=== PATIENT | female | born 1930 | race Caucasian/White ===

== ENCOUNTER 2018-05-15 13:20 | Inpatient (IN) | payer MEDICARE, OTHER ==
[~2018-05-15] VITALS: Ht 152.4 cm; Wt 67.3 kg
--- NOTE | 2018-05-15 15:26 | NUR ---
PT CALLED FROM LOBBY TO ROOM 24. DAUGHTER/PT IN LOBBY RESTROOM, DENYING ASSISTANCE. PT/FAMILY AWARE OF BED ASSIGNMENT AND WILL BE ROOMED ONCE OUT OF BATHROOM
[2018-05-15] MEDS ORDERED: MORPHINE SULFATE 4 MG/ML, 1ML ONE ×2 (15:52→17:05)
[2018-05-15] MEDS ORDERED: OXYcodone/APAP 10/325MG TABLET PO ONE (16:00)
[2018-05-15] MEDS ORDERED: morphine SULFATE 10 MG/ML, 1ML IVPush ONE (16:00)
--- NOTE | 2018-05-15 16:00 | NUR ---
PT CO WORSENING R HIP/BACK/KNEE PAIN AND "MUSCLE SPAMS" X THIS MORNING. PT ADMITS RECENT MECHANICAL GLF "ALMOST TWO WEEKS AGO" AND WAS REGAINING ROM AND STRENGTH UNTIL THIS AM. +CMS. IV ESTABLISHED. BP/SPO2 MONITOR IN PLACE. PT MEDICATED PER EMAR FOR PAIN. 6MG MORPHINE ORDERED, PT REQUESTING TO START WITH 4MG. PT PLACED ON 2L BY NC FOR SUPPORT. FAMILY AT BEDSIDE.
[2018-05-15] MEDS ORDERED: [UNRECOGNIZED DRUG - OTHER] (18:12)
[2018-05-15] MEDS ORDERED: OMEP10CA4 PO (18:12)
[2018-05-15] MEDS ORDERED: LOVA20TA2 PO (18:12)
[2018-05-15] MEDS ORDERED: BRIN8DRO RIGHTEYE (18:12)
[2018-05-15] MEDS ORDERED: ATEN50TA41 PO (18:12)
[2018-05-15] MEDS ORDERED: POTA99TA24 PO (18:12)
[2018-05-15] MEDS ORDERED: ATOR-2 PO (18:12)
[2018-05-15] MEDS ORDERED: LEVO25TA4 PO (18:12)
[2018-05-15] MEDS ORDERED: FURO20TA3 PO (18:12)
[2018-05-15] MEDS ORDERED: AMLO10TA8 PO (18:12)
--- NOTE | 2018-05-15 18:18 | NUR ---
PT LAYING IN GURNEY, AWAKE/ALERT. PT REPORTS IMPROVEMENT IN PAIN WITH MEDICATIONS AND APPEARS SIGNIFICANTLY MORE COMFORTABLE. FAMILY REMAINS AT BEDSIDE. AWAITING DISPO
[2018-05-15] MEDS ORDERED: KETOROLAC 30 MG/1 ML IVPush ONE (19:00)
--- NOTE | 2018-05-15 19:14 | NUR ---
Report from DENNIS Coates.
[2018-05-15] MEDS ORDERED: KETOROLAC 30 MG/1 ML ONE (19:29)
--- NOTE | 2018-05-15 19:40 | NUR ---
Toradol admin. Placed on bed galvan to void. Repositioned for comfort.
[2018-05-15] MEDS ORDERED: DOCUSATE 100 MG CAPSULE PO PRN (20:00)
[2018-05-15] MEDS ORDERED: POLYETHYLENE GLYCOL 17 GM PACKET PO PRN (20:00)
[2018-05-15] MEDS ORDERED: morphine SULFATE 10 MG/ML, 1ML IVPush PRN (20:00)
--- NOTE | 2018-05-15 20:05 | NUR ---
Report called to DENNIS Ruff.
[2018-05-15] MEDS ORDERED: LATA2.5D3 RIGHTEYE (20:44)
[2018-05-15] MEDS ORDERED: TIMO5DRO5 RIGHTEYE (20:44)
[2018-05-15 20:45] VITALS: BP 114/70
[2018-05-15] MEDS ORDERED: ENOXAPARIN 40 MG/0.4 ML SQ SCH (21:00)
[2018-05-15] MEDS ORDERED: LOVASTATIN 20 MG TABLET PO SCH (21:00)
[2018-05-15] MEDS ORDERED: ATORVASTATIN 80 MG TABLET PO SCH (21:00)
[2018-05-15] MEDS: SODIUM CHLORIDE FLUSH 10ML SYR IVF SCH (21:50)
[2018-05-15] MEDS: FAMOTIDINE 20 MG TABLET PO SCH (21:50)
[2018-05-16 03:26] VITALS: BP 116/55
[2018-05-16] MEDS: BACLOFEN 10 MG TABLET PO PRN ×3 (05:05→23:25)
[2018-05-16 07:34] VITALS: BP 130/60
[2018-05-16] MEDS ORDERED: AMLODIPINE 10 MG TAB PO SCH (09:00)
[2018-05-16 09:50] LABS: CREATININE 1.26 mg/dL (0.55-1.02)
[2018-05-16] MEDS: SENNA/DOCUSATE TABLET PO SCH (10:45)
[2018-05-16] MEDS: SODIUM CHLORIDE FLUSH 10ML SYR IVF SCH ×2 (10:46→21:14)
[2018-05-16] MEDS: FAMOTIDINE 20 MG TABLET PO SCH ×2 (10:46→21:13)
[2018-05-16] MEDS: ATENOLOL 50 MG TABLET PO SCH (10:46)
[2018-05-16] MEDS: LEVOTHYROXINE 75 MCG TABLET PO SCH (10:47)
[2018-05-16] MEDS: ACETAMINOPHEN 325 MG TABLET PO PRN (12:14)
[2018-05-16 14:37] VITALS: BP 163/72
[2018-05-16] MEDS ORDERED: morphine SULFATE 10 MG/ML, 1ML IVPush PRN (17:30)
[2018-05-16] MEDS ORDERED: hydrALAzine 20 MG/ML, 1ML IV PRN (18:00)
[2018-05-16 20:15] VITALS: BP 107/53
[2018-05-16] MEDS: BRINZOLAMIDE RIGHTEYE SCH (21:00)
[2018-05-16] MEDS: LATANOPROST OPHTH 0.005%, 2.5ML RIGHTEYE SCH (21:00)
[2018-05-16] MEDS: BRIMONIDINE RIGHTEYE SCH (21:00)
[2018-05-16] MEDS: LOVASTATIN 20 MG TABLET PO SCH (21:00)
[2018-05-16] MEDS: METHOCARBAMOL 1,000 MG in DEXTROSE 5% 100 ML IV SCH (21:13)
[2018-05-16] MEDS: AMLODIPINE 10 MG TAB PO SCH (21:13)
[2018-05-16] MEDS: morphine SULFATE 10 MG/ML, 1ML IVPush PRN (22:51)
[2018-05-16] MEDS: ENOXAPARIN 30 MG/0.3 ML SQ SCH (22:51)
[2018-05-17 02:00] VITALS: BP 122/62
[2018-05-17] MEDS: METHOCARBAMOL 1,000 MG in DEXTROSE 5% 100 ML IV SCH ×4 (02:50→23:00)
[2018-05-17 06:32] LABS: ALBUMIN 3.1 g/dL (3.4-5.0); ANION GAP 11 mmol/L (5-15); CALCIUM 7.5 mg/dL (8.5-10.1); CHLORIDE 94 mmol/L (98-107)
[2018-05-17 06:36] LABS: ALANINE AMINOTRANSFERASE 32 U/L (12-78); ALKALINE PHOSPHATASE 98 U/L (45-117); BILIRUBIN,TOTAL 0.8 mg/dL (0.2-1.0); CREATININE 0.97 mg/dL (0.55-1.02); TOTAL PROTEIN 6.7 g/dL (6.4-8.2)
[2018-05-17] MEDS: morphine SULFATE 10 MG/ML, 1ML IVPush PRN ×2 (06:37→16:04)
[2018-05-17 06:56] VITALS: BP 136/69
[2018-05-17 08:40] LABS: BASOPHILS # (AUTO) 0.07 x10^3/uL (0-0.1); BASOPHILS % (AUTO) 1 % (0-1); EOSINOPHILS # (AUTO) 0.09 x10^3/uL (0-0.4); EOSINOPHILS % (AUTO) 1 % (1-7); LYMPHOCYTES # (AUTO) 1.21 x10^3/uL (1-3.4); LYMPHOCYTES % (AUTO) 15 % (22-44); MD NO; MEAN CORPUSCULAR HEMOGLOBIN 28.7 pg (27.0-34.8); MEAN CORPUSCULAR VOLUME 86.8 fL (80-100); MEAN PLATELET VOLUME 8.7 fL (7.4-10.4); MONOCYTES # (AUTO) 0.42 x10^3/uL (0.2-0.8); MONOCYTES % (AUTO) 5 % (2-9); NEUTROPHILS # (AUTO) 6.56 x10^3/uL (1.8-6.8); NEUTROPHILS % (AUTO) 79 % (42-75); PLATELET COUNT 225 x10^3/uL (130-400); RED BLOOD COUNT 3.85 x10^6/uL (3.82-5.3); RED CELL DISTRIBUTION WIDTH 13.4 % (9.6-15.2)
[2018-05-17] MEDS: SODIUM CHLORIDE FLUSH 10ML SYR IVF SCH ×2 (10:48→20:44)
[2018-05-17] MEDS: FAMOTIDINE 20 MG TABLET PO SCH ×2 (10:48→20:43)
[2018-05-17] MEDS: LEVOTHYROXINE 75 MCG TABLET PO SCH (10:48)
[2018-05-17] MEDS: SENNA/DOCUSATE TABLET PO SCH (10:48)
[2018-05-17] MEDS: ATENOLOL 50 MG TABLET PO SCH (10:53)
[2018-05-17] MEDS: TIMOLOL OPHTH 0.5%, 5ML RIGHTEYE SCH (10:55)
[2018-05-17] MEDS: ONDANSETRON 2MG/ML, 2ML IVPush PRN (11:22)
[2018-05-17] MEDS: BRINZOLAMIDE RIGHTEYE SCH ×3 (11:23→20:46)
[2018-05-17] MEDS: BRIMONIDINE RIGHTEYE SCH ×3 (11:23→20:46)
[2018-05-17 13:22] VITALS: BP 121/63
[2018-05-17] MEDS: HYDROcodone/APAP 5/325 TABLET PO PRN (14:29)
[2018-05-17] MEDS ORDERED: POTASSIUM CHLORIDE 20 MEQ TAB.ER.PRT PO ONE (15:00)
[2018-05-17] MEDS ORDERED: FUROSEMIDE 40 MG/4 ML IV ONE (15:00)
[2018-05-17] MEDS ORDERED: GADOBUTROL 7.5 MMOL/7.5 ML PFS ONE (15:03)
[2018-05-17] MEDS: SODIUM CHLORIDE 0.9% 1,000 ML IV SCH ×2 (16:21→23:37)
[2018-05-17 19:46] VITALS: BP 108/68
[2018-05-17] MEDS: LOVASTATIN 20 MG TABLET PO SCH (20:44)
[2018-05-17] MEDS: ENOXAPARIN 30 MG/0.3 ML SQ SCH (20:44)
[2018-05-17] MEDS: AMLODIPINE 10 MG TAB PO SCH (20:44)
[2018-05-17] MEDS: LATANOPROST OPHTH 0.005%, 2.5ML RIGHTEYE SCH (20:45)
[2018-05-18 02:09] VITALS: BP 128/62
[2018-05-18] MEDS: METHOCARBAMOL 1,000 MG in DEXTROSE 5% 100 ML IV SCH (03:41)
[2018-05-18 05:38] LABS: ANION GAP 10 mmol/L (5-15); CHLORIDE 97 mmol/L (98-107); CREATININE 0.97 mg/dL (0.55-1.02)
[2018-05-18] MEDS: FAMOTIDINE 20 MG TABLET PO SCH ×2 (07:34→21:42)
[2018-05-18] MEDS: SENNA/DOCUSATE TABLET PO SCH (07:34)
[2018-05-18] MEDS: SODIUM CHLORIDE 0.9% 1,000 ML IV SCH (07:34)
[2018-05-18] MEDS: BACLOFEN 10 MG TABLET PO PRN ×2 (07:34→15:55)
[2018-05-18] MEDS: ATENOLOL 50 MG TABLET PO SCH (07:35)
[2018-05-18] MEDS: LEVOTHYROXINE 75 MCG TABLET PO SCH (07:35)
[2018-05-18] MEDS: BRINZOLAMIDE RIGHTEYE SCH ×3 (07:37→21:00)
[2018-05-18] MEDS: TIMOLOL OPHTH 0.5%, 5ML RIGHTEYE SCH (07:37)
[2018-05-18] MEDS: BRIMONIDINE RIGHTEYE SCH ×3 (07:37→21:00)
[2018-05-18 08:00] VITALS: BP 156/72
[2018-05-18] MEDS: SODIUM CHLORIDE FLUSH 10ML SYR IVF SCH ×2 (09:00→21:00)
[2018-05-18] MEDS: HYDROcodone/APAP 5/325 TABLET PO PRN (10:19)
[2018-05-18 10:30] VITALS: BP 151/76
[2018-05-18] MEDS ORDERED: SODIUM CHLORIDE 0.9% 1,000 ML IV SCH (11:00)
[2018-05-18] MEDS ORDERED: LACTULOSE 20 GM/30 ML UDC PR ONE (11:00)
[2018-05-18] MEDS ORDERED: POTASSIUM CHLORIDE 20 MEQ TAB.ER.PRT PO ONE (11:30)
[2018-05-18] MEDS ORDERED: FUROSEMIDE 40 MG/4 ML IV ONE (11:30)
[2018-05-18] MEDS ORDERED: ALBUTEROL SULFATE 2.5 MG/3 ML NPPB PRN (12:00)
[2018-05-18] MEDS ORDERED: OMNIPAQUE 350 MG/ML, 100ML BOTTLE ONE (13:20)
[2018-05-18 14:02] LABS: CHLORIDE 93 mmol/L (98-107)
[2018-05-18 14:07] VITALS: BP 159/77
[2018-05-18] MEDS ORDERED: METH500T97 PO (14:08)
[2018-05-18] MEDS ORDERED: TRAM50TA2 PO (14:08)
[2018-05-18] MEDS ORDERED: LISI-167 PO (14:08)
[2018-05-18] MEDS ORDERED: HYDR-3240 PO (14:08)
[2018-05-18] MEDS ORDERED: FURO40TA6 PO (14:08)
[2018-05-18] MEDS ORDERED: POLY17PO5 PO (14:08)
[2018-05-18 14:09] LABS: ANION GAP 9 mmol/L (5-15); CALCIUM 8.2 mg/dL (8.5-10.1); CREATININE 0.96 mg/dL (0.55-1.02)
[2018-05-18] MEDS: morphine SULFATE 10 MG/ML, 1ML IVPush PRN (15:54)
[2018-05-18] MEDS: FUROSEMIDE 40 MG/4 ML IV SCH (15:55)
[2018-05-18 19:57] VITALS: BP 126/64
[2018-05-18] MEDS: LOVASTATIN 20 MG TABLET PO SCH (21:00)
[2018-05-18] MEDS: LATANOPROST OPHTH 0.005%, 2.5ML RIGHTEYE SCH (21:00)
[2018-05-18] MEDS: AMLODIPINE 10 MG TAB PO SCH (21:42)
[2018-05-18] MEDS: ENOXAPARIN 30 MG/0.3 ML SQ SCH (21:42)
[2018-05-19 01:12] VITALS: BP 140/80
[2018-05-19 05:33] LABS: CHLORIDE 93 mmol/L (98-107)
[2018-05-19 05:43] LABS: ANION GAP 9 mmol/L (5-15); CALCIUM 8.8 mg/dL (8.5-10.1); CREATININE 1.12 mg/dL (0.55-1.02)
[2018-05-19 07:36] VITALS: BP 162/71
[2018-05-19] MEDS: LEVOTHYROXINE 75 MCG TABLET PO SCH (08:49)
[2018-05-19] MEDS: POTASSIUM CHLORIDE 20 MEQ TAB.ER.PRT PO SCH ×2 (08:49→17:47)
[2018-05-19] MEDS: SODIUM CHLORIDE FLUSH 10ML SYR IVF SCH ×2 (08:50→19:32)
[2018-05-19] MEDS: ATENOLOL 50 MG TABLET PO SCH (08:50)
[2018-05-19] MEDS: SENNA/DOCUSATE TABLET PO SCH ×2 (08:50→09:00)
[2018-05-19] MEDS: FAMOTIDINE 20 MG TABLET PO SCH ×2 (08:50→19:31)
[2018-05-19] MEDS: BRINZOLAMIDE RIGHTEYE SCH ×3 (08:51→19:32)
[2018-05-19] MEDS: TIMOLOL OPHTH 0.5%, 5ML RIGHTEYE SCH (08:51)
[2018-05-19] MEDS: FUROSEMIDE 40 MG/4 ML IV SCH ×2 (08:51→17:16)
[2018-05-19] MEDS: BRIMONIDINE RIGHTEYE SCH ×3 (08:51→19:32)
[2018-05-19] MEDS: BACLOFEN 10 MG TABLET PO PRN ×3 (09:19→19:29)
[2018-05-19] MEDS ORDERED: SODIUM CHLORIDE 1 GM TABLET PO SCH (12:00)
[2018-05-19] MEDS ORDERED: SODIUM CHLORIDE 1 GM TABLET ONE (12:51)
[2018-05-19] MEDS: SODIUM CHLORIDE 1 GM TABLET PO SCH ×2 (12:54→19:32)
[2018-05-19 14:00] VITALS: BP 120/69
[2018-05-19] MEDS: ACETAMINOPHEN 325 MG TABLET PO PRN (17:16)
[2018-05-19] MEDS: HYDROcodone/APAP 5/325 TABLET PO PRN (19:29)
[2018-05-19] MEDS: LOVASTATIN 20 MG TABLET PO SCH (19:31)
[2018-05-19] MEDS: AMLODIPINE 10 MG TAB PO SCH (19:31)
[2018-05-19] MEDS: LATANOPROST OPHTH 0.005%, 2.5ML RIGHTEYE SCH (19:32)
[2018-05-19] MEDS: ENOXAPARIN 30 MG/0.3 ML SQ SCH (19:32)
[2018-05-19 19:56] VITALS: BP 104/60
[2018-05-20 01:12] VITALS: BP 159/78
[2018-05-20] MEDS: BACLOFEN 10 MG TABLET PO PRN (04:42)
[2018-05-20] MEDS: HYDROcodone/APAP 5/325 TABLET PO PRN (04:42)
[2018-05-20 05:42] LABS: CHLORIDE 93 mmol/L (98-107)
[2018-05-20 06:13] LABS: ANION GAP 10 mmol/L (5-15); CALCIUM 8.5 mg/dL (8.5-10.1); CREATININE 1.03 mg/dL (0.55-1.02)
[2018-05-20 07:48] VITALS: BP 126/67
[2018-05-20] MEDS: SENNA/DOCUSATE TABLET PO SCH (09:00)
[2018-05-20] MEDS: TIMOLOL OPHTH 0.5%, 5ML RIGHTEYE SCH (09:00)
[2018-05-20] MEDS: BRIMONIDINE RIGHTEYE SCH ×3 (09:00→20:44)
[2018-05-20] MEDS: SODIUM CHLORIDE FLUSH 10ML SYR IVF SCH ×2 (09:00→20:43)
[2018-05-20] MEDS: FAMOTIDINE 20 MG TABLET PO SCH ×3 (09:00→20:42)
[2018-05-20] MEDS: BRINZOLAMIDE RIGHTEYE SCH ×3 (09:00→20:44)
[2018-05-20] MEDS: POTASSIUM CHLORIDE 20 MEQ TAB.ER.PRT PO SCH (09:00)
[2018-05-20] MEDS: ATENOLOL 50 MG TABLET PO SCH ×2 (09:00→10:42)
[2018-05-20] MEDS: FUROSEMIDE 40 MG/4 ML IV SCH ×2 (10:41→16:40)
[2018-05-20] MEDS: LEVOTHYROXINE 75 MCG TABLET PO SCH (10:41)
[2018-05-20] MEDS: SODIUM CHLORIDE 1 GM TABLET PO SCH ×3 (10:41→20:43)
[2018-05-20 14:00] VITALS: BP 138/74
[2018-05-20] MEDS: ONDANSETRON 2MG/ML, 2ML IVPush PRN (16:40)
[2018-05-20] MEDS: AMLODIPINE 10 MG TAB PO SCH (20:42)
[2018-05-20] MEDS: LOVASTATIN 20 MG TABLET PO SCH (20:42)
[2018-05-20] MEDS: ENOXAPARIN 30 MG/0.3 ML SQ SCH (20:43)
[2018-05-20 20:44] VITALS: BP 139/73
[2018-05-20] MEDS: LATANOPROST OPHTH 0.005%, 2.5ML RIGHTEYE SCH (20:44)
[2018-05-20 21:10] VITALS: BP 132/65
[2018-05-21] MEDS: BACLOFEN 10 MG TABLET PO PRN ×3 (02:32→22:30)
[2018-05-21] MEDS: ONDANSETRON 2MG/ML, 2ML IVPush PRN ×2 (02:32→08:56)
[2018-05-21 02:43] VITALS: BP 139/65
[2018-05-21] MEDS ORDERED: ONDANSETRON ODT 4 MG ONE (02:59)
[2018-05-21 07:16] VITALS: BP 137/76
[2018-05-21] MEDS: FUROSEMIDE 40 MG/4 ML IV SCH ×2 (08:55→17:28)
[2018-05-21] MEDS: ATENOLOL 50 MG TABLET PO SCH (08:56)
[2018-05-21] MEDS: SODIUM CHLORIDE 1 GM TABLET PO SCH ×3 (08:56→20:46)
[2018-05-21] MEDS: FAMOTIDINE 20 MG TABLET PO SCH ×2 (08:56→20:47)
[2018-05-21] MEDS: BRINZOLAMIDE RIGHTEYE SCH ×3 (08:57→20:47)
[2018-05-21] MEDS: TIMOLOL OPHTH 0.5%, 5ML RIGHTEYE SCH (08:57)
[2018-05-21] MEDS: BRIMONIDINE RIGHTEYE SCH ×3 (08:57→20:47)
[2018-05-21] MEDS: SENNA/DOCUSATE TABLET PO SCH (09:00)
[2018-05-21] MEDS: SODIUM CHLORIDE FLUSH 10ML SYR IVF SCH ×2 (09:00→20:46)
[2018-05-21 10:15] LABS: CALCIUM 8.6 mg/dL (8.5-10.1); CREATININE 0.96 mg/dL (0.55-1.02)
[2018-05-21 10:24] LABS: ANION GAP 9 mmol/L (5-15); CHLORIDE 90 mmol/L (98-107)
[2018-05-21] MEDS: LEVOTHYROXINE 75 MCG TABLET PO SCH (11:54)
[2018-05-21 13:39] LABS: ANION GAP 9 mmol/L (5-15); CALCIUM 8.2 mg/dL (8.5-10.1); CHLORIDE 89 mmol/L (98-107); CREATININE 1.03 mg/dL (0.55-1.02)
[2018-05-21 14:43] VITALS: BP 132/72
[2018-05-21 19:13] VITALS: BP 127/66
[2018-05-21] MEDS: LATANOPROST OPHTH 0.005%, 2.5ML RIGHTEYE SCH (20:47)
[2018-05-21] MEDS: LOVASTATIN 20 MG TABLET PO SCH (20:47)
[2018-05-21] MEDS: AMLODIPINE 10 MG TAB PO SCH (20:47)
[2018-05-21] MEDS: ENOXAPARIN 30 MG/0.3 ML SQ SCH (22:29)
[2018-05-22 01:48] VITALS: BP 132/68
[2018-05-22 06:21] LABS: ANION GAP 10 mmol/L (5-15); CALCIUM 8.3 mg/dL (8.5-10.1); CHLORIDE 92 mmol/L (98-107)
[2018-05-22 06:39] VITALS: BP 129/69
[2018-05-22 06:48] LABS: CREATININE 0.99 mg/dL (0.55-1.02)
[2018-05-22] MEDS: ONDANSETRON 2MG/ML, 2ML IVPush PRN ×2 (08:45→17:48)
[2018-05-22] MEDS: SODIUM CHLORIDE FLUSH 10ML SYR IVF SCH ×2 (09:00→21:25)
[2018-05-22] MEDS: BRINZOLAMIDE RIGHTEYE SCH ×3 (09:00→21:00)
[2018-05-22] MEDS: TIMOLOL OPHTH 0.5%, 5ML RIGHTEYE SCH (09:00)
[2018-05-22] MEDS: BRIMONIDINE RIGHTEYE SCH ×3 (09:00→21:00)
[2018-05-22] MEDS: SENNA/DOCUSATE TABLET PO SCH (09:00)
[2018-05-22] MEDS: FUROSEMIDE 40 MG/4 ML IV SCH ×2 (10:10→17:49)
[2018-05-22] MEDS: POTASSIUM CHLORIDE 20 MEQ TAB.ER.PRT PO SCH (10:10)
[2018-05-22] MEDS: SODIUM CHLORIDE 1 GM TABLET PO SCH ×3 (10:11→21:26)
[2018-05-22] MEDS: ATENOLOL 50 MG TABLET PO SCH (10:11)
[2018-05-22] MEDS: FAMOTIDINE 20 MG TABLET PO SCH ×2 (10:11→21:25)
[2018-05-22] MEDS: BACLOFEN 10 MG TABLET PO PRN ×2 (10:11→21:39)
[2018-05-22] MEDS ORDERED: POTA20PA25 PO (10:31)
[2018-05-22] MEDS: LEVOTHYROXINE 75 MCG TABLET PO SCH (11:10)
[2018-05-22 13:25] VITALS: BP 112/69
[2018-05-22 18:40] VITALS: BP 116/62
[2018-05-22] MEDS: LATANOPROST OPHTH 0.005%, 2.5ML RIGHTEYE SCH (21:00)
[2018-05-22] MEDS: AMLODIPINE 10 MG TAB PO SCH (21:26)
[2018-05-22] MEDS: LOVASTATIN 20 MG TABLET PO SCH (21:27)
[2018-05-22] MEDS: ENOXAPARIN 30 MG/0.3 ML SQ SCH (21:39)
[2018-05-23 00:52] VITALS: BP 102/61
[2018-05-23 06:39] VITALS: BP 114/59
[2018-05-23] MEDS: BRIMONIDINE RIGHTEYE SCH ×3 (09:00→20:55)
[2018-05-23] MEDS: SODIUM CHLORIDE FLUSH 10ML SYR IVF SCH ×2 (09:00→20:56)
[2018-05-23] MEDS: TIMOLOL OPHTH 0.5%, 5ML RIGHTEYE SCH (09:00)
[2018-05-23] MEDS: BRINZOLAMIDE RIGHTEYE SCH ×3 (09:00→20:55)
[2018-05-23] MEDS: SENNA/DOCUSATE TABLET PO SCH (09:00)
[2018-05-23] MEDS: SODIUM CHLORIDE 1 GM TABLET PO SCH ×3 (09:04→20:53)
[2018-05-23] MEDS: FAMOTIDINE 20 MG TABLET PO SCH ×2 (09:04→20:54)
[2018-05-23] MEDS: FUROSEMIDE 40 MG/4 ML IV SCH (09:04)
[2018-05-23] MEDS: POTASSIUM CHLORIDE 20 MEQ TAB.ER.PRT PO SCH (09:05)
[2018-05-23] MEDS: LEVOTHYROXINE 75 MCG TABLET PO SCH (09:05)
[2018-05-23] MEDS: BACLOFEN 10 MG TABLET PO PRN ×2 (09:05→20:59)
[2018-05-23] MEDS: ATENOLOL 50 MG TABLET PO SCH (09:06)
[2018-05-23 12:10] VITALS: BP 121/69
[2018-05-23] MEDS ORDERED: POTASSIUM CHLORIDE 20 MEQ TAB.ER.PRT PO ONE (15:30)
[2018-05-23] MEDS: FUROSEMIDE 40 MG TABLET PO SCH (17:09)
[2018-05-23 19:12] VITALS: BP 121/68
[2018-05-23] MEDS: AMLODIPINE 10 MG TAB PO SCH (20:53)
[2018-05-23] MEDS: LOVASTATIN 20 MG TABLET PO SCH (20:54)
[2018-05-23] MEDS: LATANOPROST OPHTH 0.005%, 2.5ML RIGHTEYE SCH (20:55)
[2018-05-23] MEDS: ENOXAPARIN 30 MG/0.3 ML SQ SCH (21:37)
[2018-05-24 01:55] VITALS: BP 112/64
[2018-05-24 06:30] VITALS: BP 115/63
[2018-05-24] MEDS: SODIUM CHLORIDE 1 GM TABLET PO SCH ×3 (08:55→20:29)
[2018-05-24] MEDS: POTASSIUM CHLORIDE 20 MEQ TAB.ER.PRT PO SCH (08:55)
[2018-05-24] MEDS: LEVOTHYROXINE 75 MCG TABLET PO SCH (08:55)
[2018-05-24] MEDS: FUROSEMIDE 40 MG TABLET PO SCH ×2 (08:56→16:47)
[2018-05-24] MEDS: FAMOTIDINE 20 MG TABLET PO SCH ×2 (08:56→20:28)
[2018-05-24] MEDS: ATENOLOL 50 MG TABLET PO SCH (08:56)
[2018-05-24] MEDS: SODIUM CHLORIDE FLUSH 10ML SYR IVF SCH ×2 (08:57→20:36)
[2018-05-24] MEDS: SENNA/DOCUSATE TABLET PO SCH (08:57)
[2018-05-24] MEDS: TIMOLOL OPHTH 0.5%, 5ML RIGHTEYE SCH (08:58)
[2018-05-24] MEDS: BRINZOLAMIDE RIGHTEYE SCH ×3 (08:58→20:38)
[2018-05-24] MEDS: BRIMONIDINE RIGHTEYE SCH ×3 (08:58→20:38)
[2018-05-24 12:45] VITALS: BP 137/71
[2018-05-24] MEDS: BACLOFEN 10 MG TABLET PO PRN (15:27)
[2018-05-24 19:55] VITALS: BP 126/69
[2018-05-24] MEDS: LOVASTATIN 20 MG TABLET PO SCH (20:28)
[2018-05-24] MEDS: AMLODIPINE 10 MG TAB PO SCH (20:28)
[2018-05-24] MEDS: ENOXAPARIN 30 MG/0.3 ML SQ SCH (20:38)
[2018-05-24] MEDS: LATANOPROST OPHTH 0.005%, 2.5ML RIGHTEYE SCH (20:38)
[2018-05-25 01:22] VITALS: BP 106/58
[2018-05-25 06:47] VITALS: BP 116/66
[2018-05-25] MEDS: BRINZOLAMIDE RIGHTEYE SCH ×3 (09:00→20:03)
[2018-05-25] MEDS: TIMOLOL OPHTH 0.5%, 5ML RIGHTEYE SCH (09:00)
[2018-05-25] MEDS: SODIUM CHLORIDE FLUSH 10ML SYR IVF SCH ×2 (09:00→20:03)
[2018-05-25] MEDS: BRIMONIDINE RIGHTEYE SCH ×3 (09:00→20:03)
[2018-05-25] MEDS: SENNA/DOCUSATE TABLET PO SCH (09:00)
[2018-05-25] MEDS: FAMOTIDINE 20 MG TABLET PO SCH ×2 (09:04→20:02)
[2018-05-25] MEDS: SODIUM CHLORIDE 1 GM TABLET PO SCH ×3 (09:04→20:02)
[2018-05-25] MEDS: POTASSIUM CHLORIDE 20 MEQ TAB.ER.PRT PO SCH (09:04)
[2018-05-25] MEDS: FUROSEMIDE 40 MG TABLET PO SCH ×3 (09:05→16:54)
[2018-05-25] MEDS: LEVOTHYROXINE 75 MCG TABLET PO SCH ×2 (09:05→09:26)
[2018-05-25] MEDS: ATENOLOL 50 MG TABLET PO SCH ×2 (09:05→09:26)
[2018-05-25] MEDS: BACLOFEN 10 MG TABLET PO PRN (11:23)
[2018-05-25 13:28] VITALS: BP 121/78
[2018-05-25] MEDS ORDERED: TIMOLOL OPHTH 0.5%, 5ML RIGHTEYE SCH (16:51)
[2018-05-25] MEDS: ENOXAPARIN 30 MG/0.3 ML SQ SCH (20:01)
[2018-05-25] MEDS: LOVASTATIN 20 MG TABLET PO SCH (20:02)
[2018-05-25] MEDS: AMLODIPINE 10 MG TAB PO SCH (20:02)
[2018-05-25] MEDS: LATANOPROST OPHTH 0.005%, 2.5ML RIGHTEYE SCH (20:03)
[2018-05-25 20:39] VITALS: BP 102/60
[2018-05-26 03:14] VITALS: BP 114/60
[2018-05-26 07:11] VITALS: BP 124/62
[2018-05-26] MEDS: SODIUM CHLORIDE FLUSH 10ML SYR IVF SCH (09:00)
[2018-05-26] MEDS: BRINZOLAMIDE RIGHTEYE SCH (09:00)
[2018-05-26] MEDS: SENNA/DOCUSATE TABLET PO SCH (09:00)
[2018-05-26] MEDS: BRIMONIDINE RIGHTEYE SCH (09:00)
[2018-05-26] MEDS: LEVOTHYROXINE 75 MCG TABLET PO SCH (09:58)
[2018-05-26] MEDS: FAMOTIDINE 20 MG TABLET PO SCH (09:58)
[2018-05-26] MEDS: POTASSIUM CHLORIDE 20 MEQ TAB.ER.PRT PO SCH (09:59)
[2018-05-26] MEDS: SODIUM CHLORIDE 1 GM TABLET PO SCH (09:59)
[2018-05-26] MEDS: BACLOFEN 10 MG TABLET PO PRN (10:00)
[2018-05-26] MEDS: ATENOLOL 50 MG TABLET PO SCH (10:01)
[2018-05-26] MEDS: FUROSEMIDE 40 MG TABLET PO SCH (10:02)
== END 2018-05-26 13:00 | DRG 291 ==
LOC: ED 15:42 → EDIP 18:41 → 3NE 20:24
PROVIDERS: ADMIT Family Medicine; ATTEND Internal Medicine
DX: I11.0 Hypertensive heart disease with heart failure (principal); J96.01 Acute respiratory failure with hypoxia; N17.0 Acute kidney failure with tubular necrosis; E87.1 Hypo-osmolality and hyponatremia; G93.40 Encephalopathy, unspecified; M48.54XA Collapsed vertebra, not elsewhere classified, thoracic region, initial encounter for fracture; M54.9 Dorsalgia, unspecified; I50.33 Acute on chronic diastolic (congestive) heart failure; M16.11 Unilateral primary osteoarthritis, right hip; S73.101A Unspecified sprain of right hip, initial encounter; S76.211A Strain of adductor muscle, fascia and tendon of right thigh, initial encounter; G89.29 Other chronic pain; E03.9 Hypothyroidism, unspecified; E78.5 Hyperlipidemia, unspecified; H54.62 Unqualified visual loss, left eye, normal vision right eye; Z66 Do not resuscitate; I35.8 Other nonrheumatic aortic valve disorders; M11.269 Other chondrocalcinosis, unspecified knee; M17.11 Unilateral primary osteoarthritis, right knee; M41.9 Scoliosis, unspecified; W01.0XXA Fall on same level from slipping, tripping and stumbling without subsequent striking against object, initial encounter; Y93.89 Activity, other specified; Y92.038 Other place in apartment as the place of occurrence of the external cause; Y99.8 Other external cause status; Z82.49 Family history of ischemic heart disease and other diseases of the circulatory system
CPT/HCPCS: 36415; 71045; 71275; 72158; 72192; 80048; 80053; 82565; 83735; 84100; 85025; 93306; 94640; 96374; 96375; 99285; A9585; G0378; J1650; J1885; J1940; J2405; J7613; Q9967; J2270; J2800; J7030

== ENCOUNTER 2020-01-16 11:44 | Emergency (ER) | payer MEDICARE, OTHER ==
[~2020-01-16] VITALS: Ht 152.4 cm; Wt 62.0 kg
[~2020-01-16 11:44] MED LIST: AMLO10TA8 PO; ATEN50TA41 PO; ATOR-2 PO; BRIN8DRO RIGHTEYE; FURO20TA3 PO; FURO40TA6 PO; HYDR-3240 PO; LATA2.5D3 RIGHTEYE; LEVO25TA4 PO; LISI-167 PO; LOVA20TA2 PO; METH500T97 PO; OMEP10CA5 PO; POLY17PO5 PO; POTA20PA25 PO; POTA99TA24 PO; TIMO5DRO5 RIGHTEYE; TRAM50TA2 PO; [UNRECOGNIZED DRUG - OTHER]
--- NOTE | 2020-01-16 12:48 | NUR ---
PT PRESENTS TO ED WITH C/O OCCAISIONAL PALPITATIONS AND GENERALIZED WEAKNESS X 3 DAYS. PT IS A&OX4, NEURO INTACT. 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 NO DRIFT, BILATERAL GRASP EQUAL. 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 RT PUPIL EQUAL, ROUND AND REACTIVE. PT DENIES CP/SOB. ALL MONITORS IN PLACE, SINUS OLIVER RATE 50'S ON CHARTERED FINANCIAL ANALYST WITH NO ECTOPY. AWAITING LAB RESULTS AND DISPO, PT UDPATED WITH POC. CALL LIGHT IN REACH.
[2020-01-16 12:50] VITALS: BP 110/74
[2020-01-16 12:56] LABS: BASOPHILS # (AUTO) 0.03 x10^3/uL (0-0.1); BASOPHILS % (AUTO) 1 % (0-1); EOSINOPHILS # (AUTO) 0.11 x10^3/uL (0-0.4); EOSINOPHILS % (AUTO) 2 % (1-7); LYMPHOCYTES # (AUTO) 2.33 x10^3/uL (1-3.4); LYMPHOCYTES % (AUTO) 37 % (22-44); MD NO; MEAN CORPUSCULAR HEMOGLOBIN 28.1 pg (27.0-34.8); MEAN CORPUSCULAR HGB CONC 32.3 g/dL (32.4-35.8); MEAN CORPUSCULAR VOLUME 87.1 fL (80-100); MEAN PLATELET VOLUME 8.5 fL (7.4-10.4); MONOCYTES # (AUTO) 0.58 x10^3/uL (0.2-0.8); MONOCYTES % (AUTO) 9 % (2-9); NEUTROPHILS # (AUTO) 3.23 x10^3/uL (1.8-6.8); NEUTROPHILS % (AUTO) 51 % (42-75); PLATELET COUNT 189 x10^3/uL (130-400); RED BLOOD COUNT 4.25 x10^6/uL (3.82-5.3); RED CELL DISTRIBUTION WIDTH 14.5 % (9.6-15.2)
[2020-01-16 13:07] LABS: ALANINE AMINOTRANSFERASE 23 U/L (12-78); ALBUMIN 3.3 g/dL (3.4-5.0); ANION GAP 7 mmol/L (5-15); CALCIUM 8.9 mg/dL (8.5-10.1); CHLORIDE 108 mmol/L (98-107)
[2020-01-16 13:18] LABS: ALKALINE PHOSPHATASE 86 U/L (45-117); BILIRUBIN,TOTAL 0.5 mg/dL (0.2-1.0); FREE T4 (FREE THYROXINE) 1.45 ng/dL (0.76-1.46); TOTAL PROTEIN 6.8 g/dL (6.4-8.2)
--- NOTE | 2020-01-16 13:53 | NUR ---
ALL RESULTS BACK, DC ORDERS RECEIVED. AWAITING DC PAPERWORK FROM .
--- NOTE | 2020-01-16 14:44 | NUR ---
PT A&O, RESPS EVEN AND UNLABORED, SINUS OLIVER RATE 50'S WITH NO ECTOPY NOTED DURING ED STAY. PT HAS NO COMPLAINT AT DC, PT AMBULATORY AT DC, GIVEN WC ESCORT TO DC LUIS A VÁZQUEZ. Addendum: 01/16/20 at 1446 by POLLY PT A&O, RESPS EVEN AND UNLABORED, SINUS OLIVER RATE 50'S WITH NO ECTOPY NOTED DURING ED STAY. PT GIVEN DC INSTRUCTIONS INCLUDING CARDIOLOGY F/U. PT HAS NO COMPLAINT AT DC, PT AMBULATORY AT DC, GIVEN WC ESCORT TO DC LUIS A VÁZQUEZ.
== END 2020-01-16 14:44 | disposition home or self-care (01) ==
LOC: ED 12:15
DX: R00.2 Palpitations (principal); R53.1 Weakness; E78.5 Hyperlipidemia, unspecified; I10 Essential (primary) hypertension; E03.9 Hypothyroidism, unspecified
CPT/HCPCS: 36415; 80053; 84439; 84443; 85025; 93005; 99284

== ENCOUNTER 2020-04-25 17:07 | Emergency (ER) | payer MEDICARE, OTHER ==
[~2020-04-25] VITALS: Ht 147.3 cm; Wt 59.9 kg
[~2020-04-25 17:07] MED LIST changes: +AMLO-211 PO; -AMLO10TA8 PO; -LATA2.5D3 RIGHTEYE; +LATA2.5D4 RIGHTEYE
--- NOTE | 2020-04-25 18:22 | NUR ---
TO ROOM FROM LOBBY. NAD.
--- NOTE | 2020-04-25 19:40 | NUR ---
PT BIB SON VIA POV FOR FECAL IMPACTION AND RECTAL PAIN. PER PT LAST BM WAS 3 DAYS AGO. PT REPORTS SHE TRIED "STOOL SOFTNERS, MAG CITRATE, SUPPOSITORIES, AND DIG DISIMPATION WITHOUT RELIEF". PT HAD SMALL LIQUID STOOL WHEN MOVING FROM TO [facility]. PT CURRENTLY RESTING IN [facility], NAD NOTED, SON AT , WILL CONTINUE TO MONITOR.
[2020-04-25] MEDS ORDERED: PINK LADY ENEMA 490 ML BOTTLE PR ONE (20:30)
--- NOTE | 2020-04-25 22:02 | NUR ---
TASK RN: PT CURRENTLY SITTING ON COMMODE AFTER SECOND HALF OF PINK LADY ENEMA. PT REPORTS SHE IS "TRYING TO HOLD IT [THE ENEMA] IN". REQUESTS TO STAY ON COMMODE FOR A LITTLE LONGER. PT AO X 4. SKIN PWD. RESP EVEN AND UNALBORED. CALL LIGHT WITHIN REACH. PT VERBALIZES TO CALL BEFORE ATTEMPTING TO GET UP. PT ON CONT BP AND SPO2 MONITORS.
[2020-04-25] MEDS ORDERED: MAGNESIUM CITRATE 300ML ORAL SOL ONE (22:58)
[2020-04-25] MEDS ORDERED: MAGNESIUM CITRATE 300ML ORAL SOL PO ONE (23:00)
[2020-04-26 00:50] VITALS: BP 126/75
== END 2020-04-26 00:52 | disposition home or self-care (01) ==
LOC: ED 18:56
DX: K59.00 Constipation, unspecified (principal); E78.5 Hyperlipidemia, unspecified; E03.9 Hypothyroidism, unspecified; I10 Essential (primary) hypertension; R11.10 Vomiting, unspecified; R10.84 Generalized abdominal pain
CPT/HCPCS: 74176; 99285